=== PATIENT | female | born 1950 | race Caucasian/White ===

== ENCOUNTER 2018-07-21 12:48 | Day surgery (SDC) | payer MEDICARE, OTHER ==
[~2018-07-21] VITALS: Ht 157.5 cm; Wt 54.3 kg
[2018-07-21] VITALS (9 sets, daily range): BP systolic 116–144; BP diastolic 51–88; PULSE 55–74; TEMP 98
[2018-07-21] MEDS ORDERED: OMEGA-31 SGL PO (13:13)
== END 2018-07-21 20:05 | disposition home or self-care (01) ==
LOC: SDCO 12:48 → SURG 16:37 → SDCO 20:05
DX: K83.1 Obstruction of bile duct (principal); R94.5 Abnormal results of liver function studies; K21.9 Gastro-esophageal reflux disease without esophagitis
CPT/HCPCS: OP; C1769; C2625; J2704; J7030; Q9967